=== PATIENT | female | born 1960 | race Caucasian/White ===

== ENCOUNTER → 2017-02-02 | Outpatient (CLI) | payer OTHER ==
[~2017-02-02] MED LIST: AUGMENTIN 875-1 EACH PO; ESTRACE0.5 MG PO; MONTELUKAST SOD10 MG PO; NASONEX0.05 MG/AC; PROAIR HFA0.09 MG/AC IH; VITAMIN E1000 IU PO
--- NOTE | 2017-02-03 12:17 | RADIOLOGY REPORT PS360 ---
HAND-LT-3 VIEWS, HAND-RT 3 VIEWS HISTORY: BILAT POLYARTHRALGIA Patient Age: 56 years: Female Ordering Physician: Raghav Alexander MD TECHNIQUE: Left hand 3 view. Right hand 3 view COMPARISON :No none ===== LEFT HAND 3 VIEW.: The joint spaces are well-maintained. Bones well mineralized. No discrete erosions evident. There are some hypertrophic degenerative changes about the IP joint left thumb, most evident at the dorsal and radial aspect of this joint. ( Findings are more evident here at the IP joint of left thumb versus right thumb.) There is a small subchondral likely early degenerative cystic feature at the lunate 1.5 mm towards its articulation with navicular.. The carpal joint spaces are well-maintained . No remarkable periarticular osteopenia/osteoporosis either hand IMPRESSION: Early degenerative changes at IP joint of thumb noted. A few tiny cystic areas at carpals/lunate noted Otherwise hand unremarkable. Joint spaces well-maintained with no erosions evident RIGHT HAND 3 VIEW : The joint spaces are well-maintained. Bones well mineralized. No discrete erosions evident. There is mild sharpening at the lateral posterior margin of IP joint of thumb which may reflect scant early degenerative changes here. Very unimpressive on right.Carpals intact at right hand Also note some extremely subtle calcification along the dorsal & ulnar margin DIP joint index finger. Could reflect an old injury less likely early spurring here but unimpressive. Again the joint space is well-maintained throughout all the DIP joints and PIP joints left and right hand IMPRESSION. Right hand intact . Only hint slight sharpening at margins of IP joint of thumb, which may reflect some extremely minor degenerative arthritic changes here. Otherwise joint spaces well-maintained. No discrete erosions
== END ==
LOC: RAD 15:02
DX: M25.50 Pain in unspecified joint (principal)